=== PATIENT | male | born 1975 | race African-American/Black ===

== ENCOUNTER 2016-05-16 22:34 | Inpatient (IN) | payer OTHER ==
[~2016-05-16] VITALS: Ht 180.3 cm; Wt 88.5 kg
[~2016-05-16 22:34] MED LIST: ALBUTEROL SULF8.5 GM INH; ASPIRIN81 MG ORAL; ATIVAN0.5 MG ORAL; BUSPAR10 MG ORAL; COREG3.125 MG ORAL; COREG6.25 MG ORAL; FUROSEMIDE20 M1 ORAL; FUROSEMIDE40 MG ORAL; LISINOPRIL5 MG ORAL; NEURONTIN100 MG ORAL; NORCO 10-325 T1 EACH ORAL; NORCO 5-325 TA1 EACH ORAL
--- NOTE | 2016-05-16 23:06 | Emergency Room Report ---
History of Present Illness General Chief Complaint: Dizziness Source: Patient, Medical Record Present Illness HPI This is a 41-year-old male with a history of severe cardiomyopathy. He is noncompliant with his medication. He claimed that he lost his medication and has not been on them for about a week. Even when he had his medication he was taken on and off. He presents with chief complaint of being tired and syncope with exertion. Denies any nausea vomiting. Denies any chest pain. Does have some swelling in his lower extremity. No fever or chills. No diaphoresis. He does have short of breath with exertion. Allergies: Coded Allergies: No Known Allergies (Unverified , 03/27/16) Patient History Past Medical History: see triage record, old chart reviewed, CHF Past Surgical History: other Pertinent Family History: none Social History: Reports: drug use, smoking Immunizations: other Reviewed Nursing Documentation: PMH: Agreed, PSxH: Agreed Nursing Documentation-PMH Hx Cardiac Problems: Yes - CHF Hx Hypertension: Yes Hx COPD: Yes Hx Cancer: No Hx Gastrointestinal Problems: No Hx Neurological Problems: Yes Review of Systems Eye: Denies: blurred vision, eye pain ENT: Denies: ear pain, nose congestion, throat swelling Respiratory: Reports: shortness of breath, Denies: cough Cardiovascular: Denies: chest pain, palpitations Gastrointestinal: Denies: abdominal pain, diarrhea, nausea, vomiting Musculoskeletal: Denies: back pain, joint pain Skin: Denies: rash Neurological: Denies: headache, numbness Endocrine: Denies: increased thirst, increased urine Hematologic/Lymphatic: Denies: easy bruising All Other Systems: negative except mentioned in HPI Physical Exam Vital Signs Date Time Temp Pulse Resp B/P Pulse Ox O2 Delivery O2 Flow Rate FiO2 05/16/16 22:43 98.1 89 16 116/81 98 Room Air vitals normal Sp02 EP Interpretation: reviewed, normal General Appearance: well appearing, no apparent distress, alert Head: normocephalic, atraumatic Eyes: bilateral eye EOMI, bilateral eye PERRL ENT: hearing grossly normal, normal pharynx Neck: full range of motion, supple, no meningismus Respiratory: chest non-tender, lungs clear, normal breath sounds Cardiovascular #1: regular rate, rhythm, no murmur Gastrointestinal: normal bowel sounds, non tender, no mass, no organomegaly, no bruit, non-distended Musculoskeletal: back normal, gait/station normal, normal range of motion, swelling - 1+ edema Neurologic: alert, oriented x3 Psychiatric: mood/affect normal Skin: warm/dry Medical Decision Making Diagnostic Impression: Primary Impression: Cardiomyopathy Qualified Codes: I42.7 - Cardiomyopathy due to drug and external agent Additional Impressions: Acute exacerbation of CHF (congestive heart failure) Qualified Codes: I50.9 - Heart failure, unspecified Methamphetamine abuse Syncope and collapse ER Course Patient presents with syncope by history. Unwitnessed. Probably do to is severe cardiomyopathy. He is noncompliant with his medication. Also has history of drug abuse. He may need an AICD. May also be valve replacement. He is otherwise stable. Diuresing well after Lasix. We'll admit for further workup. Lab Results Impression labs showed elevated BNP EKG Diagnostic Results Rate: normal Rhythm: NSR ST Segments: no acute changes Rhythm Strip Diag. Results EP Interpretation: yes Rate: 80 Rhythm: NSR, no PVC's, no ectopy Chest X-Ray Diagnostic Results EP Interpretation: Yes Findings: no consolidation, no effusion, no pneumothorax, no acute cardiopulmonary disease, other - CM Number of Views: 1 Last Vital Signs Date Time Temp Pulse Resp B/P Pulse Ox O2 Delivery O2 Flow Rate FiO2 05/16/16 22:43 98.1 89 16 116/81 98 Room Air Status: improved Disposition: ADMITTED INPATIENT Condition: Serious JOHNATHAN VELAZQUEZ M.D. May 16, 2016 23:06
[2016-05-16 23:45] LABS: BASOPHILS % (AUTO) 1.6 % (0.0-2.0); EOSINOPHILS % (AUTO) 4.1 % (0.0-3.0); LYMPHOCYTES % (AUTO) 28.1 % (20.0-45.0); MEAN CORPUSCULAR HEMOGLOBIN 28.4 PG (27.0-31.0); MEAN CORPUSCULAR VOLUME 95 FL (80-99); MONOCYTES % (AUTO) 9.1 % (1.0-10.0); NEUTROPHILS % (AUTO) 57.1 % (45.0-75.0); PLATELET COUNT 208 K/UL (150-450); RED BLOOD COUNT 4.83 M/UL (4.70-6.10); RED CELL DISTRIBUTION WIDTH 13.1 % (11.6-14.8); WHITE BLOOD COUNT 6.8 K/UL (4.8-10.8)
[2016-05-16 23:49] VITALS: BP 117/80
[2016-05-17] VITALS (9 sets, daily range): BP systolic 109–131; BP diastolic 67–83
[2016-05-17 00:01] LABS: TROPONIN I < 0.30 ng/mL (<=0.30)
[2016-05-17 00:04] LABS: ALANINE AMINOTRANSFERASE 17 U/L (3-41); ALBUMIN/GLOBULIN RATIO 0.9 (1.0-2.7); ANION GAP 15 (5-15); ASPARTATE AMINO TRANSFERASE 20 U/L (5-40); CALCIUM 8.1 mg/dL (8.6-10.2); CARBON DIOXIDE 25 mEQ/L (20-30); CHLORIDE 98 mEQ/L (98-107); GLOMERULAR FILTRATION RATE > 60 mL/min (>60); HEMOLYSIS 14; POTASSIUM 3.8 mEQ/L (3.4-4.9); SODIUM 138 mEQ/L (135-145); TOTAL PROTEIN 6.1 g/dL (6.6-8.7)
[2016-05-17 00:15] LABS: CKMB 3.8 ng/mL (< 6.7)
[2016-05-17 00:21] LABS: APPEARANCE,URINE CLEAR; KETONES,URINE NEGATIVE (NEGATIVE); LEUKOCYTE ESTERASE ,URINE NEGATIVE (NEGATIVE); NITRITE,URINE NEGATIVE (NEGATIVE); PH,URINE 7 (4.5-8.0); PROTEIN,URINE NEGATIVE (NEGATIVE); UROBILINOGEN,URINE NORMAL MG/DL (0.0-1.0)
[2016-05-17] MEDS ORDERED: DuoNeb 0.5-3(2.5)mg/3ml neb HHN PRN (04:15)
[2016-05-17] MEDS ORDERED: Miralax 17gm pkt ORAL PRN (04:15)
[2016-05-17] MEDS: Heparin 5000 units/ml inj SUBQ SCH ×2 (09:00→21:00)
[2016-05-17] MEDS: BusPIRone 10mg Tab ORAL SCH ×3 (09:24→18:40)
[2016-05-17] MEDS: Lisinopril 2.5mg tab ORAL SCH ×2 (09:24→18:00)
[2016-05-17] MEDS: Albuterol 90mcg Inhaler 8gm INH SCH ×4 (10:01→22:15)
[2016-05-17 10:16] LABS: TROPONIN I < 0.30 ng/mL (<=0.30)
--- NOTE | 2016-05-17 11:02 | Cardiology Progress Note ---
Assessment/Plan Assessment/Plan syncope known cardiomyopathy limited exam and evaluation performed today rec orthostic vital watch on tele caue of cm may be volume or meds or vagal or arrhtymic was to see the psychiatric secretary asighned by her health plan but say has nto had a chance recommneded that he see the psychiatric secretary asigned for close fu chaes reexamine and reevlaute when pt allows when i return tomorrow Objective Last 24 Hour Vital Signs Date Time Temp Pulse Resp B/P Pulse Ox O2 Delivery O2 Flow Rate FiO2 05/17/16 10:20 97.0 05/17/16 10:02 97 16 Room Air 21 05/17/16 10:00 96 16 98 Room Air 21 05/17/16 09:24 120/77 05/17/16 09:23 89 120/77 05/17/16 08:00 94.6 89 18 120/77 98 89 05/17/16 07:43 84 05/17/16 04:01 88 05/17/16 04:00 97.0 72 18 131/83 100 Room Air 05/17/16 03:08 78 05/17/16 03:03 97.5 81 20 125/72 97 Room Air 05/17/16 02:30 98.4 85 16 116/76 99 Room Air 05/17/16 02:30 98.4 85 16 116/76 99 Room Air 05/17/16 01:30 98.4 88 14 118/78 100 Room Air 05/16/16 23:49 98.2 87 16 117/80 99 Room Air 05/16/16 22:43 98.1 89 16 116/81 98 Room Air Intake and Output 05/16/16 05/17/16 19:00 07:00 Intake Total 360 ml Output Total 3000 ml Balance -2640 ml Intake Oral 360 ml Output Urine Total 3000 ml # Voids 3 Laboratory Tests Test 05/16/16 23:30 05/17/16 09:10 White Blood Count 6.8 K/UL (4.8-10.8) Red Blood Count 4.83 M/UL (4.70-6.10) Hemoglobin 13.7 G/DL (14.2-18.0) L Hematocrit 45.7 % (42.0-52.0) Mean Corpuscular Volume 95 FL (80-99) Mean Corpuscular Hemoglobin 28.4 PG (27.0-31.0) Mean Corpuscular Hemoglobin Concent 30.0 G/DL (32.0-36.0) L Red Cell Distribution Width 13.1 % (11.6-14.8) Platelet Count 208 K/UL (150-450) Mean Platelet Volume 8.0 FL (6.5-10.1) Neutrophils (%) (Auto) 57.1 % (45.0-75.0) Lymphocytes (%) (Auto) 28.1 % (20.0-45.0) Monocytes (%) (Auto) 9.1 % (1.0-10.0) Eosinophils (%) (Auto) 4.1 % (0.0-3.0) H Basophils (%) (Auto) 1.6 % (0.0-2.0) Urine Color Pale yellow Urine Appearance Clear Urine pH 7 (4.5-8.0) Urine Specific [place] 1.010 (1.005-1.035) Urine Protein Negative (NEGATIVE) Urine Glucose (UA) Negative (NEGATIVE) Urine Ketones Negative (NEGATIVE) Urine Occult Blood Negative (NEGATIVE) Urine Nitrite Negative (NEGATIVE) Urine Bilirubin Negative (NEGATIVE) Urine Urobilinogen Normal MG/DL (0.0-1.0) Urine Leukocyte Esterase Negative (NEGATIVE) Sodium Level 138 mEQ/L (135-145) Potassium Level 3.8 mEQ/L (3.4-4.9) Chloride Level 98 mEQ/L (98-107) Carbon Dioxide Level 25 mEQ/L (20-30) Anion Gap 15 (5-15) Blood Urea Nitrogen 12 mg/dL (7-23) Creatinine 1.0 mg/dL (0.7-1.2) Estimat Glomerular Filtration Rate > 60 mL/min (>60) Glucose Level 136 mg/dL (74-106) H Calcium Level 8.1 mg/dL (8.6-10.2) L Total Bilirubin 0.5 mg/dL (0.0-1.2) Aspartate Amino Transf (AST/SGOT) 20 U/L (5-40) Alanine Aminotransferase (ALT/SGPT) 17 U/L (3-41) Alkaline Phosphatase 81 U/L (40-129) Total Creatine Kinase 246 U/L (38-174) H Creatine Kinase MB 3.8 ng/mL (< 6.7) Creatine Kinase MB Relative Index 1.5 Troponin I < 0.30 ng/mL (<=0.30) < 0.30 ng/mL (<=0.30) Pro-B-Type Natriuretic Peptide 2363 pg/mL (0-125) H Total Protein 6.1 g/dL (6.6-8.7) L Albumin 2.9 g/dL (3.5-5.2) L Globulin 3.2 g/dL Albumin/Globulin Ratio 0.9 (1.0-2.7) L Urine Opiates Screen Negative (NEGATIVE) Urine Barbiturates Screen Negative (NEGATIVE) Phencyclidine (PCP) Screen Negative (NEGATIVE) Urine Amphetamines Screen Positive (NEGATIVE) H Urine Benzodiazepines Screen Negative (NEGATIVE) Urine Cocaine Screen Negative (NEGATIVE) Urine Marijuana (THC) Screen Positive (NEGATIVE) REJI REIS May 17, 2016 11:02
--- NOTE | 2016-05-17 11:14 | Diagnostic Imaging Report ---
Indication: Dyspnea Comparison: 04/17/16 A single view chest radiograph was obtained. Findings: Heart is enlarged. Pulmonary vascularity is appropriate. The diaphragmatic contour is smooth and costophrenic angles are sharp. No pleural effusions are identified. The bones are unremarkable. Impression: No acute findings
--- NOTE | 2016-05-17 12:23 | History and Physical ---
History of Present Illness General Date patient seen: May 17, 2016 Reason for Hospitalization: Dizziness Present Illness HPI 41-year-old male with a history of severe cardiomyopathy, noncompliant with his medication. He presents with chief complaint of being tired and syncope with exertion. Denies any chest pain. Does have some swelling in his lower extremity. He does have short of breath with exertion. He is admitted to telemetry for further evaluation. Allergies: Coded Allergies: No Known Allergies (Unverified , 03/27/16) Medication History Scheduled Albuterol Sulfate* (Albuterol Sulfate Mdi*), 2 PUFF INH Q6H, (Reported) Aspirin* (Aspirin*), 81 MG ORAL DAILY, (Reported) Buspirone Hcl* (Buspar*), Unknown Dose ORAL THREE TIMES A DAY, (Reported) Buspirone Hcl* (Buspar*), 10 MG ORAL THREE TIMES A DAY Carvedilol (Coreg), Unknown Dose ORAL EVERY 12 HOURS, (Reported) Carvedilol (Coreg), 6.25 MG ORAL EVERY 12 HOURS, (Reported) Furosemide* (Lasix*), Unknown Dose ORAL DAILY, (Reported) Furosemide* (Lasix*), 40 MG ORAL TWICE A DAY, (Reported) Gabapentin* (Neurontin*), Unknown Dose ORAL THREE TIMES A DAY, (Reported) Gabapentin* (Neurontin*), 100 MG ORAL THREE TIMES A DAY, (Reported) Lisinopril (Lisinopril*), Unknown Dose ORAL DAILY, (Reported) Lisinopril (Lisinopril*), 10 MG ORAL BID, (Reported) Lorazepam* (Ativan*), Unknown Dose ORAL THREE TIMES A DAY, (Reported) Scheduled PRN Hydrocodone Bit/Acetaminophen 10-325* ([place] 10-325*), 1 TAB ORAL Q6H PRN Hydrocodone Bit/Acetaminophen 5-325* ([place] 5-325*), 1 TAB ORAL Q6H PRN for For Pain, (Reported) Patient History Healthcare decision maker Resuscitation status Full Code Advanced Directive on File No Past Medical/Surgical History Past Medical/Surgical History: (1) Homelessness (2) COPD (chronic obstructive pulmonary disease) (3) HTN (hypertension) (4) Severe systolic congestive heart failure (5) Methamphetamine abuse (6) Cardiomyopathy Review of Systems Constitutional: Reports: malaise, weakness Eye: Reports: no symptoms ENT: Reports: no symptoms Respiratory: Reports: shortness of breath Cardiovascular: Reports: no symptoms Gastrointestinal: Reports: no symptoms Genitourinary: Reports: no symptoms Skin: Reports: no symptoms Physical Exam General Appearance: WD/WN Lines, tubes and drains: peripheral, central line HEENT: normocephalic, atraumatic Neck: non-tender, normal alignment Respiratory/Chest: chest wall non-tender, lungs clear Cardiovascular/Chest: normal peripheral pulses, normal rate Abdomen: normal bowel sounds, non tender Genitourinary/Rectal: normal genital exam Skin Exam: normal pigmentation Last 24 Hour Vital Signs Date Time Temp Pulse Resp B/P Pulse Ox O2 Delivery O2 Flow Rate FiO2 05/17/16 10:20 97.0 05/17/16 10:02 97 16 Room Air 21 05/17/16 10:00 96 16 98 Room Air 21 05/17/16 09:24 120/77 05/17/16 09:23 89 120/77 05/17/16 08:00 94.6 89 18 120/77 98 89 05/17/16 07:43 84 05/17/16 04:01 88 05/17/16 04:00 97.0 72 18 131/83 100 Room Air 05/17/16 03:08 78 05/17/16 03:03 97.5 81 20 125/72 97 Room Air 05/17/16 02:30 98.4 85 16 116/76 99 Room Air 05/17/16 02:30 98.4 85 16 116/76 99 Room Air 05/17/16 01:30 98.4 88 14 118/78 100 Room Air 05/16/16 23:49 98.2 87 16 117/80 99 Room Air 05/16/16 22:43 98.1 89 16 116/81 98 Room Air Intake and Output 05/16/16 05/17/16 19:00 07:00 Intake Total 360 ml Output Total 3000 ml Balance -2640 ml Intake Oral 360 ml Output Urine Total 3000 ml # Voids 3 Laboratory Tests Test 05/16/16 23:30 05/17/16 09:10 White Blood Count 6.8 K/UL (4.8-10.8) Red Blood Count 4.83 M/UL (4.70-6.10) Hemoglobin 13.7 G/DL (14.2-18.0) L Hematocrit 45.7 % (42.0-52.0) Mean Corpuscular Volume 95 FL (80-99) Mean Corpuscular Hemoglobin 28.4 PG (27.0-31.0) Mean Corpuscular Hemoglobin Concent 30.0 G/DL (32.0-36.0) L Red Cell Distribution Width 13.1 % (11.6-14.8) Platelet Count 208 K/UL (150-450) Mean Platelet Volume 8.0 FL (6.5-10.1) Neutrophils (%) (Auto) 57.1 % (45.0-75.0) Lymphocytes (%) (Auto) 28.1 % (20.0-45.0) Monocytes (%) (Auto) 9.1 % (1.0-10.0) Eosinophils (%) (Auto) 4.1 % (0.0-3.0) H Basophils (%) (Auto) 1.6 % (0.0-2.0) Urine Color Pale yellow Urine Appearance Clear Urine pH 7 (4.5-8.0) Urine Specific [place] 1.010 (1.005-1.035) Urine Protein Negative (NEGATIVE) Urine Glucose (UA) Negative (NEGATIVE) Urine Ketones Negative (NEGATIVE) Urine Occult Blood Negative (NEGATIVE) Urine Nitrite Negative (NEGATIVE) Urine Bilirubin Negative (NEGATIVE) Urine Urobilinogen Normal MG/DL (0.0-1.0) Urine Leukocyte Esterase Negative (NEGATIVE) Sodium Level 138 mEQ/L (135-145) Potassium Level 3.8 mEQ/L (3.4-4.9) Chloride Level 98 mEQ/L (98-107) Carbon Dioxide Level 25 mEQ/L (20-30) Anion Gap 15 (5-15) Blood Urea Nitrogen 12 mg/dL (7-23) Creatinine 1.0 mg/dL (0.7-1.2) Estimat Glomerular Filtration Rate > 60 mL/min (>60) Glucose Level 136 mg/dL (74-106) H Calcium Level 8.1 mg/dL (8.6-10.2) L Total Bilirubin 0.5 mg/dL (0.0-1.2) Aspartate Amino Transf (AST/SGOT) 20 U/L (5-40) Alanine Aminotransferase (ALT/SGPT) 17 U/L (3-41) Alkaline Phosphatase 81 U/L (40-129) Total Creatine Kinase 246 U/L (38-174) H Creatine Kinase MB 3.8 ng/mL (< 6.7) Creatine Kinase MB Relative Index 1.5 Troponin I < 0.30 ng/mL (<=0.30) < 0.30 ng/mL (<=0.30) Pro-B-Type Natriuretic Peptide 2363 pg/mL (0-125) H Total Protein 6.1 g/dL (6.6-8.7) L Albumin 2.9 g/dL (3.5-5.2) L Globulin 3.2 g/dL Albumin/Globulin Ratio 0.9 (1.0-2.7) L Urine Opiates Screen Negative (NEGATIVE) Urine Barbiturates Screen Negative (NEGATIVE) Phencyclidine (PCP) Screen Negative (NEGATIVE) Urine Amphetamines Screen Positive (NEGATIVE) H Urine Benzodiazepines Screen Negative (NEGATIVE) Urine Cocaine Screen Negative (NEGATIVE) Urine Marijuana (THC) Screen Positive (NEGATIVE) H Height (Feet): 5 Height (Inches): 11.00 Weight (Pounds): 192 Medications Current Medications Medications (Trade) Dose Ordered Sig/Prosper Route PRN Reason Start Time Stop Time Status Last Admin Dose Admin Acetaminophen (Tylenol) 650 mg Q4H PRN ORAL Fever 05/17/16 04:15 06/16/16 04:14 Acetaminophen/ Hydrocodone Bitart ([place] 10/325) 1 ea Q6H PRN ORAL pain 05/17/16 04:15 05/24/16 04:14 Albuterol Sulfate (Proventil MDI) 2 puff Q6H INH 05/17/16 04:15 06/16/16 04:14 05/17/16 10:03 Albuterol/ Ipratropium (DuoNeb 0.5-3(2.5)mg/3ml) 3 ml EVERY 4 HOURS PRN HHN Shortness of Breath 05/17/16 04:15 05/22/16 04:14 Buspirone HCl (Buspar) 10 mg THREE TIMES A DAY ORAL 05/17/16 09:00 06/16/16 08:59 05/17/16 09:24 Carvedilol (Coreg) 3.25 mg EVERY 12 HOURS ORAL 05/17/16 09:00 06/16/16 08:59 05/17/16 09:23 Dextrose (Dextrose 50%) STAT PRN IV Hypoglycemia 05/17/16 04:15 06/16/16 04:14 Furosemide (Lasix) 40 mg EVERY 8 HOURS IV 05/17/16 06:00 06/16/16 05:59 05/17/16 05:51 Gabapentin (Neurontin) 100 mg THREE TIMES A DAY ORAL 05/17/16 09:00 06/16/16 08:59 05/17/16 09:21 Heparin Sodium (Porcine) (Heparin 5000 units/ml) 5,000 units EVERY 12 HOURS SUBQ 05/17/16 09:00 06/16/16 08:59 Lisinopril (Zestril) 10 mg BID ORAL 05/17/16 09:00 06/16/16 08:59 05/17/16 09:24 Ondansetron HCl (Zofran) 4 mg Q6H PRN IVP Nausea & Vomiting 05/17/16 04:15 06/16/16 04:14 Polyethylene Glycol (Miralax) 17 gm DAILYPRN PRN ORAL Constipation 05/17/16 04:15 06/16/16 04:14 Temazepam (Restoril) 15 mg HSPRN PRN ORAL Insomnia 05/17/16 04:15 05/24/16 04:14 Assessment/Plan Problem List: (1) Acute exacerbation of CHF (congestive heart failure) ICD Codes: I50.9 - Heart failure, unspecified SNOMED: 24569127 Qualifiers: Qualified Codes: I50.9 - Heart failure, unspecified (2) Severe systolic congestive heart failure ICD Codes: I50.20 - Unspecified systolic (congestive) heart failure SNOMED: 39243010, [id number] (3) COPD (chronic obstructive pulmonary disease) ICD Codes: J44.9 - Chronic obstructive pulmonary disease, unspecified SNOMED: 12710210 (4) Methamphetamine abuse ICD Codes: F15.10 - Other stimulant abuse, uncomplicated SNOMED: 978599865 (5) Homelessness ICD Codes: Z59.0 - Homelessness SNOMED: [id number] Assessment/Plan telemetry cardiac evaluation titrate cardiac meds RONY LIGHT May 17, 2016 12:23
[2016-05-17] MEDS: Norco 10mg/325mg tab ORAL PRN (16:55)
--- NOTE | 2016-05-17 19:47 | Consultation ---
DATE OF CONSULTATION: 05/17/2016 CARDIOLOGY CONSULTATION CONSULTING PHYSICIAN: Aidan Noguera M.D. REFERRING PHYSICIAN: Meagan Henson M.D. REASON FOR REFERRAL: Syncope. HISTORY OF PRESENT ILLNESS: This is a 41-year-old gentleman whom I have seen before for cardiomyopathy. The patient is admitted because of syncope to discuss these as his mind is foggy right now that he is unable to talk at this time. He did provide some information. Apparently, he was singing in the parade when he passed out, but he does not provide any more information than that. It does appear that the patient does wake up at night because of shortness of breath. He is homeless, but he does not sleep on the street, he says. He does not have luxurious pillows to sleep and so I am not sure how many pillows he actually uses. He does have shortness of breath at times. He does get dizzy or lightheaded when he sits up often. I was not really able to elicit more information from him because he indicated that he is groggy, that he has already told me that he is groggy, that he is unable to provide information at this time. PAST MEDICAL HISTORY: From his last hospitalization is systolic heart failure, cardiomyopathy, COPD, hypertension, and apparently he has a history of smoking and a history of cocaine abuse, but reportedly in remission according to the records. ALLERGIES: He is not allergic to any medications. SOCIAL HISTORY: He smokes. Again, homeless, but not lives on the street. He has a prior history of cocaine abuse. REVIEW OF SYSTEMS: Unable to obtain. PHYSICAL EXAMINATION: GENERAL: Very limited. The patient was not able to sit up all the way. VITAL SIGNS: His blood pressure is 120/77 with a heart rate of 89 to 97, and oxygen saturation on room air is 98%. LUNGS: The upper lung webster appear to be clear. CARDIAC: Regular rate and rhythm to the extent the patient allowed examination. EXTREMITIES: The patient refused examination of the lower extremities, referred me to the vascular soil conservation technician to check with before examining his legs, so this is a limited examination. LABORATORY AND DIAGNOSTIC DATA: The patient's EKG shows normal sinus rhythm, some voltage criteria for left ventricular hypertrophy. There is some T-wave inversions in lead aVL and V6. Unfortunately, I am unable to bill the old images to compare with. White count is 6.8 with hemoglobin 13.7 and platelet count of 208,000. Sodium is 138, potassium 3.8, chloride 98, bicarbonate 25, BUN 12, creatinine is 1.0, and a glucose of 136. Calcium is 8.1. Liver function tests are normal. Total CK of 246. Troponins are negative and his pro-BNP is 2300. His albumin is 2.9. His triglycerides . ASSESSMENT AND PLAN: 1. Syncope. 2. History of known cardiomyopathy. Aidan Noguera M.D. DR: ALEJO JOB#: [id number] CC:
[2016-05-18] VITALS (7 sets, daily range): BP systolic 107–122; BP diastolic 62–80
[2016-05-18] MEDS: Norco 10mg/325mg tab ORAL PRN ×3 (00:14→13:58)
[2016-05-18] MEDS: Albuterol 90mcg Inhaler 8gm INH SCH ×4 (01:00→19:00)
[2016-05-18 08:25] LABS: BASOPHILS % (AUTO) 1.7 % (0.0-2.0); EOSINOPHILS % (AUTO) 3.5 % (0.0-3.0); LYMPHOCYTES % (AUTO) 25.6 % (20.0-45.0); MEAN CORPUSCULAR HEMOGLOBIN 28.4 PG (27.0-31.0); MEAN CORPUSCULAR HGB CONC 30.8 G/DL (32.0-36.0); MEAN CORPUSCULAR VOLUME 92 FL (80-99); MEAN PLATELET VOLUME 9.1 FL (6.5-10.1); MONOCYTES % (AUTO) 10.7 % (1.0-10.0); NEUTROPHILS % (AUTO) 58.5 % (45.0-75.0); PLATELET COUNT 257 K/UL (150-450); RED CELL DISTRIBUTION WIDTH 12.8 % (11.6-14.8); WHITE BLOOD COUNT 6.2 K/UL (4.8-10.8)
[2016-05-18 08:35] LABS: TROPONIN I < 0.30 ng/mL (<=0.30)
[2016-05-18] MEDS: Heparin 5000 units/ml inj SUBQ SCH ×2 (09:00→21:05)
[2016-05-18 09:07] LABS: ANION GAP 16 (5-15); CALCIUM 8.9 mg/dL (8.6-10.2); CARBON DIOXIDE 27 mEQ/L (20-30); CHLORIDE 94 mEQ/L (98-107); CREATININE 1.1 mg/dL (0.7-1.2); GLOMERULAR FILTRATION RATE > 60 mL/min (>60); HEMOLYSIS 11; PHOSPHORUS 3.4 mg/dL (2.5-4.8); SODIUM 137 mEQ/L (135-145)
[2016-05-18] MEDS: Lisinopril 2.5mg tab ORAL SCH ×2 (10:05→18:00)
[2016-05-18] MEDS: BusPIRone 10mg Tab ORAL SCH ×3 (10:05→18:25)
--- NOTE | 2016-05-18 12:14 | Diagnostic Imaging Report ---
Indication: Dyspnea Comparison: 05/16/16 A single view chest radiograph was obtained. Findings: Cardiomegaly is present. Pulmonary vascularity is appropriate. The diaphragmatic contour is smooth and costophrenic angles are sharp. No pleural effusions are identified. The bones are unremarkable. Impression: No acute findings
--- NOTE | 2016-05-18 15:11 | Pulmonology Progress Note ---
Assessment/Plan Problems: (1) Acute exacerbation of CHF (congestive heart failure) (2) Severe systolic congestive heart failure (3) COPD (chronic obstructive pulmonary disease) (4) Methamphetamine abuse (5) Homelessness Assessment/Plan improving no SOB No hypotensive episodes pt refusing to go until he is "better" case management try tor transfer the pt to [facility] Subjective ROS Limited/Unobtainable: No Constitutional: Reports: no symptoms HEENT: Repors: no symptoms Respiratory: Reports: no symptoms Allergies: Coded Allergies: No Known Allergies (Unverified , 03/27/16) Objective Last 24 Hour Vital Signs Date Time Temp Pulse Resp B/P Pulse Ox O2 Delivery O2 Flow Rate FiO2 05/18/16 14:24 96.5 05/18/16 14:24 96.5 05/18/16 11:59 77 05/18/16 11:45 90 05/18/16 11:40 77 05/18/16 11:35 71 05/18/16 11:29 96.5 74 20 114/70 99 Room Air 05/18/16 10:06 77 114/70 05/18/16 10:05 114/70 05/18/16 10:03 77 114/70 05/18/16 08:10 69 05/18/16 08:02 97.1 89 20 107/80 98 Room Air 05/18/16 07:42 Room Air 05/18/16 07:42 Room Air 05/18/16 04:30 98.0 76 20 122/79 100 Room Air 05/18/16 04:08 86 05/18/16 01:27 Room Air 21 05/18/16 01:27 Room Air 21 05/18/16 00:45 96.0 85 20 111/69 98 Room Air 90 05/17/16 23:42 68 05/17/16 22:16 82 109/67 05/17/16 20:00 81 05/17/16 19:30 Room Air 21 05/17/16 19:30 Room Air 21 05/17/16 18:00 109/67 05/17/16 16:00 77 05/17/16 16:00 97.4 82 20 109/67 98 Room Air Intake and Output 05/17/16 05/18/16 19:00 07:00 Intake Total 980 ml Output Total 5600 ml 2400 ml Balance -4620 ml -2400 ml Intake Oral 980 ml Output Urine Total 5600 ml 2400 ml # Voids 6 3 # Bowel Movements 1 General Appearance: WD/WN HEENT: atraumatic Respiratory/Chest: chest wall non-tender, lungs clear, chest wall tender Cardiovascular: normal rate Abdomen: normal bowel sounds, soft, non tender Genitourinary: normal external genitalia Skin: no rash Laboratory Tests 05/18/16 08:00: White Blood Count 6.2, Red Blood Count 5.80, Hemoglobin 16.5, Hematocrit 53.5H, Mean Corpuscular Volume 92, Mean Corpuscular Hemoglobin 28.4, Mean Corpuscular Hemoglobin Concent 30.8L, Red Cell Distribution Width 12.8, Platelet Count 257, Mean Platelet Volume 9.1, Neutrophils (%) (Auto) 58.5, Lymphocytes (%) (Auto) 25.6, Monocytes (%) (Auto) 10.7H, Eosinophils (%) (Auto) 3.5H, Basophils (%) ( Auto) 1.7, Sodium Level 137, Potassium Level 4.0, Chloride Level 94L, Carbon Dioxide Level 27, Anion Gap 16H, Blood Urea Nitrogen 20, Creatinine 1.1, Estimat Glomerular Filtration Rate > 60, Glucose Level 145H, Calcium Level 8.9, Phosphorus Level 3.4, Troponin I < 0.30, Albumin 3.4L Current Medications Medications (Trade) Dose Ordered Sig/Prosper Route PRN Reason Start Time Stop Time Status Last Admin Dose Admin Acetaminophen (Tylenol) 650 mg Q4H PRN ORAL Fever 05/17/16 04:15 06/16/16 04:14 Acetaminophen/ Hydrocodone Bitart ([place] 10/325) 1 ea Q6H PRN ORAL pain 05/17/16 04:15 05/24/16 04:14 05/18/16 13:58 Albuterol Sulfate (Proventil MDI) 2 puff Q6H INH 05/18/16 01:00 06/17/16 00:59 Albuterol/ Ipratropium (DuoNeb 0.5-3(2.5)mg/3ml) 3 ml EVERY 4 HOURS PRN HHN Shortness of Breath 05/17/16 04:15 05/22/16 04:14 Buspirone HCl (Buspar) 10 mg THREE TIMES A DAY ORAL 05/17/16 09:00 06/16/16 08:59 05/18/16 13:24 Carvedilol (Coreg) 3.25 mg EVERY 12 HOURS ORAL 05/17/16 09:00 06/16/16 08:59 05/18/16 10:06 Dextrose (Dextrose 50%) STAT PRN IV Hypoglycemia 05/17/16 04:15 06/16/16 04:14 Furosemide (Lasix) 40 mg EVERY 8 HOURS IV 05/17/16 06:00 06/16/16 05:59 05/18/16 13:26 Gabapentin (Neurontin) 100 mg THREE TIMES A DAY ORAL 05/17/16 09:00 06/16/16 08:59 05/18/16 13:25 Heparin Sodium (Porcine) (Heparin 5000 units/ml) 5,000 units EVERY 12 HOURS SUBQ 05/17/16 09:00 06/16/16 08:59 Lisinopril (Zestril) 10 mg BID ORAL 05/17/16 09:00 06/16/16 08:59 05/18/16 10:05 Ondansetron HCl (Zofran) 4 mg Q6H PRN IVP Nausea & Vomiting 05/17/16 04:15 06/16/16 04:14 Polyethylene Glycol (Miralax) 17 gm DAILYPRN PRN ORAL Constipation 05/17/16 04:15 06/16/16 04:14 Temazepam (Restoril) 15 mg HSPRN PRN ORAL Insomnia 05/17/16 04:15 05/24/16 04:14 RONY LIGHT May 18, 2016 15:11
[2016-05-18] MEDS: LORazepam 1mg tab ORAL PRN (19:49)
[2016-05-19] VITALS (7 sets, daily range): BP systolic 92–128; BP diastolic 55–74
[2016-05-19] MEDS: Albuterol 90mcg Inhaler 8gm INH SCH ×4 (01:00→18:45)
[2016-05-19] MEDS: Norco 10mg/325mg tab ORAL PRN ×3 (03:26→18:40)
[2016-05-19 07:52] LABS: TROPONIN I < 0.30 ng/mL (<=0.30)
[2016-05-19] MEDS: LORazepam 1mg tab ORAL PRN (08:26)
[2016-05-19] MEDS: BusPIRone 10mg Tab ORAL SCH ×4 (08:27→20:45)
[2016-05-19] MEDS: Heparin 5000 units/ml inj SUBQ SCH ×3 (08:29→22:06)
[2016-05-19] MEDS: Lisinopril 2.5mg tab ORAL SCH ×2 (08:48→18:41)
--- NOTE | 2016-05-19 17:04 | Pulmonology Progress Note ---
Assessment/Plan Problems: (1) Acute exacerbation of CHF (congestive heart failure) (2) Severe systolic congestive heart failure (3) COPD (chronic obstructive pulmonary disease) (4) Methamphetamine abuse (5) Homelessness Assessment/Plan improving no SOB No hypotensive episodes pt refusing to go until he is "better" awaiting for transfer to higher level of care case management try tor transfer the pt to [facility] Subjective ROS Limited/Unobtainable: No Constitutional: Reports: no symptoms HEENT: Repors: no symptoms Allergies: Coded Allergies: No Known Allergies (Unverified , 03/27/16) Objective Last 24 Hour Vital Signs Date Time Temp Pulse Resp B/P Pulse Ox O2 Delivery O2 Flow Rate FiO2 05/19/16 16:08 97.3 74 18 110/63 96 Room Air 05/19/16 14:08 97.2 05/19/16 14:08 97.2 05/19/16 13:20 Room Air 05/19/16 12:00 97.2 75 18 116/64 95 Room Air 05/19/16 08:48 128/67 05/19/16 08:38 87 128/67 05/19/16 08:07 78 16 96 Room Air 21 05/19/16 08:00 97.3 83 20 128/74 95 Room Air 05/19/16 07:57 77 16 96 Room Air 21 05/19/16 06:19 78 85 50 05/19/16 04:00 97.2 78 21 104/60 95 Room Air 05/19/16 01:19 Room Air 05/19/16 01:05 Room Air 05/19/16 00:19 97.7 78 20 115/62 97 Room Air 05/18/16 21:04 85 112/65 05/18/16 20:41 85 92 05/18/16 20:40 97.2 85 20 112/65 Room Air 05/18/16 19:29 73 16 97 Room Air 21 05/18/16 19:29 75 16 97 Room Air 21 Intake and Output 05/18/16 05/19/16 19:00 07:00 Intake Total 710 ml 480 ml Output Total 2000 ml Balance -1290 ml 480 ml Intake Oral 710 ml 480 ml Output Urine Total 2000 ml # Voids 1 General Appearance: WD/WN HEENT: normocephalic Respiratory/Chest: chest wall non-tender, lungs clear Cardiovascular: normal peripheral pulses Abdomen: normal bowel sounds Extremities: no cyanosis, no clubbing Laboratory Tests 05/19/16 06:35: Troponin I < 0.30 Current Medications Medications (Trade) Dose Ordered Sig/Prosper Route PRN Reason Start Time Stop Time Status Last Admin Dose Admin Acetaminophen (Tylenol) 650 mg Q4H PRN ORAL Fever 05/17/16 04:15 06/16/16 04:14 Acetaminophen/ Hydrocodone Bitart ([place] 10/325) 1 ea Q6H PRN ORAL pain 05/17/16 04:15 05/24/16 04:14 05/19/16 12:24 Albuterol Sulfate (Proventil MDI) 2 puff Q6H INH 05/18/16 01:00 06/17/16 00:59 05/19/16 07:57 Albuterol/ Ipratropium (DuoNeb 0.5-3(2.5)mg/3ml) 3 ml EVERY 4 HOURS PRN HHN Shortness of Breath 05/17/16 04:15 05/22/16 04:14 Buspirone HCl (Buspar) 10 mg THREE TIMES A DAY ORAL 05/17/16 09:00 06/16/16 08:59 05/19/16 12:26 Carvedilol (Coreg) 3.25 mg EVERY 12 HOURS ORAL 05/17/16 09:00 06/16/16 08:59 05/19/16 08:38 Dextrose (Dextrose 50%) STAT PRN IV Hypoglycemia 05/17/16 04:15 06/16/16 04:14 Furosemide (Lasix) 40 mg EVERY 8 HOURS IV 05/17/16 06:00 06/16/16 05:59 05/19/16 14:35 Gabapentin (Neurontin) 100 mg THREE TIMES A DAY ORAL 05/17/16 09:00 06/16/16 08:59 05/19/16 12:25 Heparin Sodium (Porcine) (Heparin 5000 units/ml) 5,000 units EVERY 12 HOURS SUBQ 05/17/16 09:00 06/16/16 08:59 05/18/16 21:05 Lisinopril (Zestril) 10 mg BID ORAL 05/17/16 09:00 06/16/16 08:59 05/18/16 10:05 Lorazepam (Ativan) 1 mg Q4H PRN ORAL For Anxiety 05/18/16 19:30 05/25/16 19:29 05/19/16 08:26 Ondansetron HCl (Zofran) 4 mg Q6H PRN IVP Nausea & Vomiting 05/17/16 04:15 06/16/16 04:14 Polyethylene Glycol (Miralax) 17 gm DAILYPRN PRN ORAL Constipation 05/17/16 04:15 06/16/16 04:14 05/19/16 08:39 Temazepam (Restoril) 15 mg HSPRN PRN ORAL Insomnia 05/17/16 04:15 05/24/16 04:14 RONY LIGHT May 19, 2016 17:04
[2016-05-19] MEDS ORDERED: Miralax 17gm pkt ORAL PRN (20:00)
[2016-05-19] MEDS: Lisinopril 10mg tab ORAL SCH (20:46)
[2016-05-19] MEDS ORDERED: DuoNeb 0.5-3(2.5)mg/3ml neb HHN PRN (21:00)
[2016-05-20] MEDS: Norco 10mg/325mg tab ORAL PRN ×3 (00:48→18:12)
[2016-05-20] MEDS: Albuterol 90mcg Inhaler 8gm INH SCH ×4 (01:00→19:00)
[2016-05-20 03:51] VITALS: BP 95/63
[2016-05-20] MEDS: BusPIRone 10mg Tab ORAL SCH ×4 (06:19→18:11)
--- NOTE | 2016-05-20 07:18 | Pulmonology Progress Note ---
Assessment/Plan Assessment/Plan ASSESSMENT syncope ( with exertion, not witnessed) systolic CHF severe cardiomyopathy Non compliance with medications severe pulmonary HTN moderate TR severe MR COPD Hx of HTN amphetamine abuse Homeless [facility] [place] floor , off tele ECG with NSR , TWI in leads aVL and V6 and evidence of LVH - per cardio cardio follows troponin x 4 negative, ruled out for acute [place] syncope ( if real) could be 2 to drug abuse vs dehydration vs vasovagal vs arrhythmia no orthostatic changes no evidence of arrhythmia medical management of CHF with low dose of BB, diuretic and ELDON, last ECHO in 2015 with EF 10-15 %, RVSP of 58 c/w severe pulmonary HTN, severe MR and moderate TR BP remains stable O2, HHN prn CXR negative on RA sat stable, no respiratory complaints no evidence of COPD exacerbation, no evidence of seizure activity Venous Duplex BLE negative DVT prophylaxis patient declined to leave until feels better CM to arrange transfer to [facility] queen's counsel on abstinence from street drugs queen's counsel on compliance with medication regimen case discussed and evaluated by supervising physician Subjective Allergies: Coded Allergies: No Known Allergies (Unverified , 03/27/16) Subjective reports not feeling well , c/o back pain, [place] not helping denies chest pain, SOB, but stated had it intermittently at night on RA, no signs of respiratory distress BP stable Objective Last 24 Hour Vital Signs Date Time Temp Pulse Resp B/P Pulse Ox O2 Delivery O2 Flow Rate FiO2 05/20/16 03:51 97.7 70 18 95/63 97 Room Air 05/20/16 00:54 Room Air 05/20/16 00:54 Room Air 05/19/16 23:51 97.7 89 20 104/64 97 Room Air 05/19/16 22:06 77 92/55 05/19/16 20:15 97.0 77 18 92/55 97 Room Air 05/19/16 20:15 77 05/19/16 18:46 Room Air 05/19/16 18:45 Room Air 05/19/16 18:41 110/63 05/19/16 16:08 97.3 74 18 110/63 96 Room Air 05/19/16 14:08 97.2 05/19/16 14:08 97.2 05/19/16 13:20 Room Air 05/19/16 12:00 97.2 75 18 116/64 95 Room Air 05/19/16 08:48 128/67 05/19/16 08:38 87 128/67 05/19/16 08:07 78 16 96 Room Air 21 05/19/16 08:00 97.3 83 20 128/74 95 Room Air 05/19/16 07:57 77 16 96 Room Air 21 Intake and Output 05/19/16 05/20/16 19:00 07:00 Intake Total 1480 ml Output Total 800 ml Balance 680 ml Intake Oral 1480 ml Output Urine Total 800 ml # Voids 6 General Appearance: no acute distress HEENT: normocephalic, atraumatic, anicteric, mucous membranes moist Respiratory/Chest: lungs clear - with moderate air entry , no respiratory distress, no accessory muscle use Cardiovascular: normal rate, regular rhythm, no JVD Abdomen: normal bowel sounds, soft, non tender, non distended Genitourinary: normal external genitalia Extremities: no edema, pedal pulses normal Neurologic/Psychiatric: no motor/sensory deficits, alert, oriented x 3, responsive, normal mood/affect Musculoskeletal: normal muscle bulk Current Medications Medications (Trade) Dose Ordered Sig/Prosper Route PRN Reason Start Time Stop Time Status Last Admin Dose Admin Acetaminophen (Tylenol) 650 mg Q4H PRN ORAL Fever 05/19/16 20:15 06/18/16 20:14 Acetaminophen/ Hydrocodone Bitart ([place] 10/325) 1 ea Q6H PRN ORAL For Pain 05/19/16 20:00 05/26/16 19:59 05/20/16 06:48 Albuterol Sulfate (Proventil MDI) 2 puff Q6H INH 05/20/16 01:00 06/19/16 00:59 Albuterol/ Ipratropium (DuoNeb 0.5-3(2.5)mg/3ml) 3 ml Q4H PRN HHN Shortness of Breath 05/19/16 21:00 05/24/16 20:59 Buspirone HCl (Buspar) 10 mg THREE TIMES A DAY ORAL 05/19/16 21:00 06/18/16 20:59 Carvedilol (Coreg) 3.25 mg EVERY 12 HOURS ORAL 05/19/16 21:00 06/18/16 20:59 Dextrose (Dextrose 50%) STAT PRN IV Hypoglycemia 05/19/16 20:00 06/18/16 19:59 Furosemide (Lasix) 40 mg EVERY 8 HOURS IV 05/19/16 22:00 06/18/16 21:59 Gabapentin (Neurontin) 100 mg THREE TIMES A DAY ORAL 05/19/16 21:00 06/18/16 20:59 Heparin Sodium (Porcine) (Heparin 5000 units/ml) 5,000 units EVERY 12 HOURS SUBQ 05/19/16 21:00 06/18/16 20:59 Lisinopril (Zestril) 10 mg BID ORAL 05/19/16 21:00 06/18/16 20:59 Lorazepam (Ativan) 1 mg Q4H PRN ORAL For Anxiety 05/19/16 19:30 05/26/16 19:29 Ondansetron HCl (Zofran) 4 mg Q6H PRN IVP Nausea & Vomiting 05/19/16 20:00 06/18/16 19:59 Polyethylene Glycol (Miralax) 17 gm DAILYPRN PRN ORAL Constipation 05/19/16 20:00 06/18/16 19:59 Temazepam (Restoril) 15 mg HSPRN PRN ORAL Insomnia 05/19/16 21:00 05/26/16 20:59 Asif EscobarRenetta mejia NP May 20, 2016 07:18
[2016-05-20 08:00] VITALS: BP 113/57
[2016-05-20] MEDS: Lisinopril 10mg tab ORAL SCH ×2 (08:28→18:12)
[2016-05-20] MEDS: LORazepam 1mg tab ORAL PRN (08:29)
[2016-05-20] MEDS: Heparin 5000 units/ml inj SUBQ SCH ×2 (08:33→21:00)
[2016-05-20 12:00] VITALS: BP 110/62
[2016-05-20 18:00] VITALS: BP 112/58
[2016-05-20 20:00] VITALS: BP 112/58
[2016-05-21] VITALS: BP 102/59
[2016-05-21] MEDS: Albuterol 90mcg Inhaler 8gm INH SCH ×4 (01:00→19:00)
[2016-05-21 04:00] VITALS: BP 110/61
[2016-05-21] MEDS: Heparin 5000 units/ml inj SUBQ SCH ×2 (09:00→21:00)
[2016-05-21] MEDS: BusPIRone 10mg Tab ORAL SCH ×3 (09:00→19:39)
[2016-05-21] MEDS: LORazepam 1mg tab ORAL PRN ×2 (09:23→14:27)
[2016-05-21] MEDS: Norco 10mg/325mg tab ORAL PRN ×3 (09:25→21:38)
[2016-05-21] MEDS: Lisinopril 10mg tab ORAL SCH ×2 (09:26→19:39)
[2016-05-21 12:04] VITALS: BP 99/57
--- NOTE | 2016-05-21 14:22 | Pulmonology Progress Note ---
Assessment/Plan Assessment/Plan ASSESSMENT syncope ( with exertion, not witnessed) systolic CHF severe cardiomyopathy Non compliance with medications severe pulmonary HTN moderate TR severe MR COPD Hx of HTN amphetamine abuse Homeless [facility] [place] floor , off tele ECG with NSR , TWI in leads aVL and V6 and evidence of LVH - per cardio cardio follows troponin x 4 negative, ruled out for acute [place] syncope ( if real) could be 2 to drug abuse vs dehydration vs vasovagal vs arrhythmia no orthostatic changes no evidence of arrhythmia medical management of CHF with low dose of BB, diuretic and ELDON, last ECHO in 2015 with EF 10-15 %, RVSP of 58 c/w severe pulmonary HTN, severe MR and moderate TR BP lower today, reports dizziness bolus NS 250 cc no orthostatic changes O2, HHN prn CXR negative on RA sat stable, no respiratory complaints no evidence of COPD exacerbation, no evidence of seizure activity Venous Duplex BLE negative DVT prophylaxis patient declined to leave until feels better CM to arrange transfer to [facility] director of counseling on abstinence from street drugs director of counseling on compliance with medication regimen case discussed and evaluated by supervising physician Subjective Allergies: Coded Allergies: No Known Allergies (Unverified , 03/27/16) Subjective reports not feeling well , dizziness no orthostatic VS BP on a low site denies chest pain, SOB, but stated had it intermittently at night on RA, no signs of respiratory distress Objective Last 24 Hour Vital Signs Date Time Temp Pulse Resp B/P Pulse Ox O2 Delivery O2 Flow Rate FiO2 05/21/16 12:06 75 84 72 05/21/16 12:04 97.3 75 15 99/57 98 Room Air 05/21/16 10:24 96.8 05/21/16 10:24 96.8 05/21/16 09:26 114/62 05/21/16 09:24 83 114/62 05/21/16 09:00 83 98 88 05/21/16 04:00 96.8 77 18 110/61 97 Room Air 05/21/16 01:24 Room Air 05/21/16 01:23 Room Air 05/21/16 00:00 97.9 74 18 102/59 98 Room Air 05/20/16 21:17 71 110/62 05/20/16 20:00 97.5 74 18 112/58 97 Room Air 05/20/16 19:24 Room Air 05/20/16 19:24 Room Air 05/20/16 18:12 110/62 05/20/16 18:00 97.5 74 18 112/58 97 Room Air 05/20/16 18:00 104 100 94 Intake and Output 05/20/16 05/21/16 19:00 07:00 Intake Total 680 ml 500 ml Output Total 1600 ml 2050 ml Balance -920 ml -1550 ml Intake Oral 680 ml 500 ml Output Urine Total 1600 ml 2050 ml # Voids 5 2 Objective General Appearance: no acute distress HEENT: normocephalic, atraumatic, anicteric, mucous membranes moist Respiratory/Chest: lungs clear with moderate air entry , no respiratory distress, no accessory muscle use Cardiovascular: normal rate, regular rhythm, no JVD Abdomen: normal bowel sounds, soft, non tender, non distended Genitourinary: normal external genitalia Extremities: no edema, pedal pulses normal Neurologic/Psychiatric: no motor/sensory deficits, alert, oriented x 3, responsive, normal mood/affect Musculoskeletal: normal muscle bulk Current Medications Medications (Trade) Dose Ordered Sig/Prosper Route PRN Reason Start Time Stop Time Status Last Admin Dose Admin Acetaminophen (Tylenol) 650 mg Q4H PRN ORAL Fever 05/19/16 20:15 06/18/16 20:14 Acetaminophen/ Hydrocodone Bitart ([place] 10/325) 1 ea Q6H PRN ORAL For Pain 05/19/16 20:00 05/26/16 19:59 05/21/16 09:25 Albuterol Sulfate (Proventil MDI) 2 puff Q6H INH 05/20/16 01:00 06/19/16 00:59 Albuterol/ Ipratropium (DuoNeb 0.5-3(2.5)mg/3ml) 3 ml Q4H PRN HHN Shortness of Breath 05/19/16 21:00 05/24/16 20:59 Buspirone HCl (Buspar) 10 mg THREE TIMES A DAY ORAL 05/19/16 21:00 06/18/16 20:59 05/20/16 18:11 Carvedilol (Coreg) 3.25 mg EVERY 12 HOURS ORAL 05/19/16 21:00 06/18/16 20:59 05/21/16 09:24 Dextrose (Dextrose 50%) STAT PRN IV Hypoglycemia 05/19/16 20:00 06/18/16 19:59 Furosemide (Lasix) 40 mg EVERY 8 HOURS IV 05/19/16 22:00 06/18/16 21:59 05/21/16 05:51 Gabapentin (Neurontin) 100 mg THREE TIMES A DAY ORAL 05/19/16 21:00 06/18/16 20:59 05/21/16 09:25 Heparin Sodium (Porcine) (Heparin 5000 units/ml) 5,000 units EVERY 12 HOURS SUBQ 05/19/16 21:00 06/18/16 20:59 Lisinopril (Zestril) 10 mg BID ORAL 05/19/16 21:00 06/18/16 20:59 05/21/16 09:26 Lorazepam (Ativan) 1 mg Q4H PRN ORAL For Anxiety 05/19/16 19:30 05/26/16 19:29 05/21/16 09:23 Ondansetron HCl (Zofran) 4 mg Q6H PRN IVP Nausea & Vomiting 05/19/16 20:00 06/18/16 19:59 05/20/16 18:12 Polyethylene Glycol (Miralax) 17 gm DAILYPRN PRN ORAL Constipation 05/19/16 20:00 06/18/16 19:59 Temazepam (Restoril) 15 mg HSPRN PRN ORAL Insomnia 05/19/16 21:00 05/26/16 20:59 [facility]Renetta NP May 21, 2016 14:22
[2016-05-21] MEDS ORDERED: NS 275 ML ONE (14:30)
[2016-05-21 16:13] VITALS: BP 102/60
--- NOTE | 2016-05-21 17:10 | Diagnostic Imaging Report ---
APPROVED REPORT CPT Code: 19660 Present Symptoms Lower Extremity Pain: BILATERAL: Imaging reveals a patent deep venous system bilaterally. There is no evidence of thrombus within the femoral, popliteal or tibial segments. The greater saphenous veins are also within normal limits. Doppler indicates normal spontaneous flow within these segments.
[2016-05-21 20:00] VITALS: BP 99/59
[2016-05-22] VITALS: BP 91/51
[2016-05-22] MEDS: Albuterol 90mcg Inhaler 8gm INH SCH ×3 (01:00→13:29)
[2016-05-22] MEDS: LORazepam 1mg tab ORAL PRN ×2 (03:24→09:57)
[2016-05-22] MEDS: Norco 10mg/325mg tab ORAL PRN ×2 (03:46→09:57)
[2016-05-22 04:00] VITALS: BP 102/66
[2016-05-22] MEDS: Heparin 5000 units/ml inj SUBQ SCH (09:00)
[2016-05-22] MEDS: Lisinopril 10mg tab ORAL SCH (09:00)
[2016-05-22] MEDS: BusPIRone 10mg Tab ORAL SCH ×2 (09:47→13:00)
--- NOTE | 2016-05-22 11:50 | Pulmonology Progress Note ---
Assessment/Plan Assessment/Plan ASSESSMENT syncope ( with exertion, not witnessed) systolic CHF severe cardiomyopathy Non compliance with medications severe pulmonary HTN moderate TR severe MR COPD Hx of HTN amphetamine abuse Homeless [facility] floor , off tele ECG with NSR , TWI in leads aVL and V6 and evidence of LVH - per cardio cardio follows troponin x 4 negative, ruled out for acute [place] syncope ( if real) could be 2 to drug abuse vs dehydration vs vasovagal vs arrhythmia no orthostatic changes no evidence of arrhythmia medical management of CHF with low dose of BB, diuretic and ELDON, closely watch BP last ECHO in 2015 with EF 10-15 %, RVSP of 58 c/w severe pulmonary HTN, severe MR and moderate TR reviewed orthostatic VS, no orthostatic changes O2, HHN prn CXR negative on RA sat stable, no respiratory complaints no evidence of COPD exacerbation, no evidence of seizure activity Venous Duplex BLE negative DVT prophylaxis patient declined to leave until feels better CM to arrange transfer to [facility] certified genetic counselor on abstinence from street drugs certified genetic counselor on compliance with medication regimen patient needs to set up primary care provider and cardio prior to dc patient wants to go to SNF for a short term rehab case discussed and evaluated by supervising physician Subjective Allergies: Coded Allergies: No Known Allergies (Unverified , 03/27/16) Subjective reports feeling better,still intermittent dizziness no orthostatic VS BP better denies chest pain, SOB, on RA, no signs of respiratory distress Objective Last 24 Hour Vital Signs Date Time Temp Pulse Resp B/P Pulse Ox O2 Delivery O2 Flow Rate FiO2 05/22/16 09:00 64 102/66 05/22/16 09:00 102/66 05/22/16 07:50 Room Air 05/22/16 07:50 64 16 97 Room Air 05/22/16 04:00 97.7 74 20 102/66 98 Room Air 05/22/16 01:34 Room Air 05/22/16 01:34 Room Air 05/22/16 00:00 97.2 76 20 91/51 91 Room Air 05/21/16 22:37 98.1 05/21/16 21:38 86 90/66 05/21/16 20:37 98.1 05/21/16 20:00 97.3 71 22 99/59 95 Room Air 05/21/16 19:53 Room Air 05/21/16 19:53 Room Air 05/21/16 19:39 90/66 05/21/16 18:42 82 86 89 05/21/16 16:13 98.1 89 14 102/60 88 Room Air 05/21/16 13:30 Room Air 05/21/16 13:30 Room Air 05/21/16 12:06 75 84 72 05/21/16 12:04 97.3 75 15 99/57 98 Room Air Intake and Output 05/21/16 05/22/16 18:59 06:59 Intake Total 2100 ml Output Total 600 ml Balance 2100 ml -600 ml Intake Oral 2100 ml Output Urine Total 600 ml # Voids 3 6 # Bowel Movements 3 Objective General Appearance: no acute distress HEENT: normocephalic, atraumatic, anicteric, mucous membranes moist Respiratory/Chest: lungs clear with moderate air entry , no respiratory distress, no accessory muscle use Cardiovascular: normal rate, regular rhythm, no JVD Abdomen: normal bowel sounds, soft, non tender, non distended Genitourinary: normal external genitalia Extremities: no edema, pedal pulses normal Neurologic/Psychiatric: no motor/sensory deficits, alert, oriented x 3, responsive, normal mood/affect Musculoskeletal: normal muscle bulk Current Medications Medications (Trade) Dose Ordered Sig/Prosper Route PRN Reason Start Time Stop Time Status Last Admin Dose Admin Acetaminophen (Tylenol) 650 mg Q4H PRN ORAL Fever 05/19/16 20:15 06/18/16 20:14 Acetaminophen/ Hydrocodone Bitart ([place] 10/325) 1 ea Q6H PRN ORAL For Pain 05/19/16 20:00 05/26/16 19:59 05/22/16 09:57 Albuterol Sulfate (Proventil MDI) 2 puff Q6H INH 05/20/16 01:00 06/19/16 00:59 Albuterol/ Ipratropium (DuoNeb 0.5-3(2.5)mg/3ml) 3 ml Q4H PRN HHN Shortness of Breath 05/19/16 21:00 05/24/16 20:59 Buspirone HCl (Buspar) 10 mg THREE TIMES A DAY ORAL 05/19/16 21:00 06/18/16 20:59 05/22/16 09:47 Carvedilol (Coreg) 3.125 mg EVERY 12 HOURS ORAL 05/22/16 09:00 06/18/16 08:59 Dextrose (Dextrose 50%) STAT PRN IV Hypoglycemia 05/19/16 20:00 06/18/16 19:59 Furosemide (Lasix) 40 mg EVERY 8 HOURS IV 05/19/16 22:00 06/18/16 21:59 05/22/16 06:38 Gabapentin (Neurontin) 100 mg THREE TIMES A DAY ORAL 05/19/16 21:00 06/18/16 20:59 05/22/16 09:46 Heparin Sodium (Porcine) (Heparin 5000 units/ml) 5,000 units EVERY 12 HOURS SUBQ 05/19/16 21:00 06/18/16 20:59 Lisinopril (Zestril) 10 mg BID ORAL 05/19/16 21:00 06/18/16 20:59 05/21/16 19:39 Lorazepam (Ativan) 1 mg Q4H PRN ORAL For Anxiety 05/19/16 19:30 05/26/16 19:29 05/22/16 09:57 Ondansetron HCl (Zofran) 4 mg Q6H PRN IVP Nausea & Vomiting 05/19/16 20:00 06/18/16 19:59 05/20/16 18:12 Polyethylene Glycol (Miralax) 17 gm DAILYPRN PRN ORAL Constipation 05/19/16 20:00 06/18/16 19:59 Temazepam (Restoril) 15 mg HSPRN PRN ORAL Insomnia 05/19/16 21:00 05/26/16 20:59 05/21/16 21:38 Asif EscobarRenetta mejia NP May 22, 2016 11:50
[2016-05-22 16:57] VITALS: BP 132/76
--- NOTE | 2016-05-23 13:23 | Discharge Summary ---
Discharge Summary Hospital Course Date of Admission May 17, 2016 at 00:40 Date of Discharge May 22, 2016 at 17:55 Admitting Diagnosis syncope, CHF. TENNILLE Cochran is a 41 year old male who was admitted on May 17, 2016 at 00:40 for Syncope,Congestive Heart Failure Hospital Course dc summary dictated #[id number] Discharge Medications Continued Medications: Albuterol Sulfate* (Albuterol Sulfate Mdi*) 8.5 Gm Hfa.aer.ad 2 PUFF INH Q6H, #1 INH 0 Refills Buspirone Hcl* (Buspar*) 10 Mg Tablet 10 MG ORAL THREE TIMES A DAY for 30 Days, TAB Carvedilol (Coreg) 3.125 Mg Tablet Unknown Dose ORAL EVERY 12 HOURS, TAB Furosemide* (Lasix*) 20 Mg Tablet Unknown Dose ORAL DAILY, TAB Gabapentin* (Neurontin*) 100 Mg Capsule 100 MG ORAL THREE TIMES A DAY, #15 CAP 0 Refills Hydrocodone Bit/Acetaminophen 10-325* ([place] 10-325*) 1 Each Tablet 1 TAB ORAL Q6H PRN for 14 Days, #10 TAB 0 Refills PRN PAIN Hydrocodone Bit/Acetaminophen 5-325* ([place] 5-325*) 1 Each Tablet 1 TAB ORAL Q6H PRN for For Pain, #10 TAB 0 Refills Lisinopril (Lisinopril*) 5 Mg Tablet Unknown Dose ORAL DAILY, TAB Discontinued Medications: Buspirone Hcl* (Buspar*) 10 Mg Tablet Unknown Dose ORAL THREE TIMES A DAY, #15 TAB 0 Refills Carvedilol (Coreg) 6.25 Mg Tablet 6.25 MG ORAL EVERY 12 HOURS, TAB Furosemide* (Lasix*) 40 Mg Tablet 40 MG ORAL TWICE A DAY, TAB 0 Refills Gabapentin* (Neurontin*) 100 Mg Capsule Unknown Dose ORAL THREE TIMES A DAY, #15 CAP 0 Refills Lisinopril (Lisinopril*) 5 Mg Tablet 10 MG ORAL BID, TAB Discharge Condition Upon Discharge: stable Discharge Disposition Patient was discharged to Home () Discharge Diagnoses: Asif (Sundeep)Renetta NP May 23, 2016 13:23
--- NOTE | 2016-05-24 11:27 | Discharge Summary 2 SIG ---
DATE OF ADMISSION: 05/17/2016 DATE OF DISCHARGE: 05/22/2016 The patient was admitted under Dr. Henson. REASON FOR ADMISSION: 41-year-old male with a history of severe cardiomyopathy, who was noncompliant with his medications for about one week, presented with a chief complaint of generalized weakness and syncope with exertion. He denied chest pain. Denies nausea and vomiting. He had mild swelling in lower extremities. No fever. No chills. No diaphoresis. No palpitation. Occasional shortness of breath with exertion. In the emergency department, initial workup revealed elevated proBNP. EKG showed normal sinus rhythm. No premature ventricular contractions. No ectopy. No ST changes. Chest x-ray revealed cardiomegaly without acute cardiopulmonary disease. No consolidation. No effusion. No pneumothorax. The patient was admitted for further management. ADMITTING DIAGNOSES: 1. Acute exacerbation of congestive heart failure. 2. Severe systolic congestive heart failure. 3. Chronic obstructive pulmonary disease. 4. Amphetamine abuse. 5. Homeless. HOSPITAL COURSE: The patient was admitted to telemetry. Cardiac evaluation was requested to titrate cardiac medications. Per Cardiology, the patient's EKG shows normal sinus rhythm and some voltage criteria for left ventricular hypertrophy. There was a T-wave inversion noted in lead aVL and V6, but there was no other EKG to compare with. He was afebrile. No leukocytosis. Hemoglobin was stable. Electrolytes were stable. CK was 246. Troponin was negative. ProBNP was 2300. The patient was noncompliant with examination of soil sort worker. The patient verbalized that he wants to be seen by soil sort worker from his health plan. Per Cardiology, the cause of syncope could be volume or medication or arrhythmia or vasovagal. Subsequently since there was no evidence of arrhythmia on telemetry, the patient was transferred to Med/Surg floor. Troponin x4 was negative. The patient was ruled out for acute myocardial infarction. Syncope could be secondary to drug abuse versus dehydration versus vasovagal versus arrhythmia. However, no orthostatic changes. Orthostatic vital signs were done daily. No evidence of arrhythmia. Thus syncope most likely secondary to hypotension versus drug abuse versus dehydration. The patient had a low blood pressure and lisinopril dose was decreased. Medical management of congestive heart failure with low dose of beta-gege, low dose of ELDON, and diuretic. Blood pressure was closely watched. The last echo was done in March 2016 revealed ejection fraction 10% to 15%, right ventricular systolic pressure 58, consistent with severe pulmonary hypertension, severe mitral regurgitation, and moderate tricuspid regurgitation. Supplemental oxygen and pulmonary toilet provided as needed. The patient's saturation was stable on room air. No need for the oxygen. Chest x-ray was negative for any acute cardiopulmonary disease. No evidence of chronic obstructive pulmonary disease exacerbation. No evidence of seizure activity. Venous duplex of bilateral lower extremity was negative. DVT prophylaxis provided. The patient initially declined to leave until he feels better. The patient homeless, has parents who live in [place], occasionally stays with them. The patient was counseled on abstinence from the street drugs and compliance with the medication regimen. carry in worker explained prior to discharge regarding how to fing a primary care provider per current insurance plan. The patient was discharged home and to follow up with the primary care provider, which he needs to be set up. He instructed to go to the emergency room, should he develop again shortness of breath, syncope or chest pain. DISCHARGE DIAGNOSES: : 1. Syncope, possibly due to dehydration versus drug abuse. 2. Systolic congestive heart failure. 3. Severe cardiomyopathy. 4. Noncompliance with medication. 5. Severe pulmonary hypertension. 6. Moderate tricuspid regurgitation. 7. Severe mitral regurgitation. 8. Chronic obstructive pulmonary disease, no evidence of exacerbation. 9. Hypotension. 10. Amphetamine abuse. 11. Homeless. DISCHARGE MEDICATIONS: See medication reconciliation list. DISCHARGE INSTRUCTIONS: The patient was discharged home. Follow up with the primary care provider. Meagan Henson M.D. I have been assigned to dictate discharge summary on this account and I was not involved in the patient's management. Renetta Gold (Vanchtein) N.PTacho DR: NURYS JOB#: [id number] CC: VIVIENNE
--- NOTE | 2016-06-14 15:45 | Cardiology Report ---
APPROVED REPORT EKG Measurement Heart [id number] NC 148P65 [id number] Normal sinus rhythm Right atrial enlargement Voltage criteria for left ventricular hypertrophy Nonspecific ST and T wave abnormality Prolonged QT Abnormal ECG
--- NOTE | 2016-06-15 13:30 | Cardiology Report ---
APPROVED REPORT EKG Measurement Heart [id number] MT [id number] Sinus rhythm with premature atrial complexes Right atrial enlargement Voltage criteria for left ventricular hypertrophy Nonspecific T wave abnormality Prolonged QT Abnormal ECG
== END 2016-05-22 17:55 | disposition short-term general hospital (02) | DRG 194 ==
LOC: EMR 23:20 → 2E 05-17 00:40 → EDBEDREQ 05-17 02:09 → 2E 05-17 13:21 → 4E 05-18 20:19 → 3E 05-22 15:30
DX: I50.23 Acute on chronic systolic (congestive) heart failure (principal); I27.2 Other secondary pulmonary hypertension; E86.0 Dehydration; I42.9 Cardiomyopathy, unspecified; J44.9 Chronic obstructive pulmonary disease, unspecified; F15.10 Other stimulant abuse, uncomplicated; Z59.0 Homelessness; Z91.14 Patient's other noncompliance with medication regimen; I10 Essential (primary) hypertension; I08.1 Rheumatic disorders of both mitral and tricuspid valves
CPT/HCPCS: 36415; 71010; 80048; 80053; 80069; 80300; 81003; 82550; 82553; 83880; 84484; 85025; 87081; 93005; 93970; 94640; J2405

== ENCOUNTER 2016-12-28 07:37 | Emergency (ER) | payer OTHER ==
[~2016-12-28] VITALS: Ht 180.3 cm; Wt 88.5 kg
[2016-12-28] MEDS ORDERED: Norco 5mg/325mg tab ORAL ONE (07:45)
[2016-12-28] MEDS ORDERED: DiphenhydrAMINE 50mg/ml Inj IVP ONE (07:45)
[2016-12-28] MEDS ORDERED: Metoclopramide 10mg/2ml Inj IVP ONE (07:45)
[2016-12-28 07:58] LABS: BASOPHILS % (AUTO) 1.7 % (0.0-2.0); EOSINOPHILS % (AUTO) 4.8 % (0.0-3.0); LYMPHOCYTES % (AUTO) 31.8 % (20.0-45.0); MEAN CORPUSCULAR HGB CONC 30.3 G/DL (32.0-36.0); MEAN CORPUSCULAR VOLUME 89 FL (80-99); MEAN PLATELET VOLUME 8.5 FL (6.5-10.1); MONOCYTES % (AUTO) 13.3 % (1.0-10.0); NEUTROPHILS % (AUTO) 48.4 % (45.0-75.0); PLATELET COUNT 183 K/UL (150-450); RED BLOOD COUNT 5.38 M/UL (4.70-6.10); RED CELL DISTRIBUTION WIDTH 15.9 % (11.6-14.8); WHITE BLOOD COUNT 5.4 K/UL (4.8-10.8)
[2016-12-28 08:11] LABS: ALANINE AMINOTRANSFERASE 29 U/L (3-41); ALBUMIN/GLOBULIN RATIO 1.2 (1.0-2.7); ANION GAP 10 (5-15); ASPARTATE AMINO TRANSFERASE 40 U/L (5-40); CALCIUM 8.4 mg/dL (8.6-10.2); CARBON DIOXIDE 25 mEQ/L (20-30); CHLORIDE 101 mEQ/L (98-107); GLOMERULAR FILTRATION RATE > 60 mL/min (>60); HEMOLYSIS 10; POTASSIUM 4.3 mEQ/L (3.4-4.9); SODIUM 136 mEQ/L (135-145); TOTAL PROTEIN 6.4 g/dL (6.6-8.7)
[2016-12-28 08:16] LABS: TROPONIN I < 0.30 ng/mL (<=0.30)
[2016-12-28 08:26] LABS: CKMB 4.5 ng/mL (< 6.7)
[2016-12-28] MEDS ORDERED: Morphine Sulfate 4mg/ml Inj IVP ONE (08:30)
--- NOTE | 2016-12-28 09:13 | Diagnostic Imaging Report ---
Indication: Headache Technique: Contiguous 5 mm thick transaxial imaging of the head obtained in a Siemens Sensation [address] scanner. Soft tissue and bone windows generated. Total Dose length Product (DLP): [address] Dose Index Volume (CTDIvol): 70.38, 0.15 mGy Comparison: none Findings: The size and configuration of the cortical sulci, basal cisterns, and ventricles are within normal limits for age. There is no mass effect, midline shift, or edema identified. There is no evidence of acute hemorrhage or abnormal intra-axial or extra-axial fluid collections. The bones and soft tissues are unremarkable. Impression: No mass effect, edema or acute bleed. The CT scanner at [facility] is accredited by the [employer] and the scans are performed using dose optimization techniques as appropriate to a performed exam including Automatic Exposure control.
--- NOTE | 2016-12-28 09:29 | Emergency Room Report ---
History of Present Illness General Chief Complaint: Chest Pain Source: Patient, Medical Record, EMS Present Illness HPI 41-year-old male presents ED her evaluation. Patient presents from [facility]. Per EMS patient complained of chest pain. Patient denies having chest pain. States that he was having a headache this morning. States it started yesterday but has not improved with pain medication. Pain is throbbing, 10 out of 10, above the right eye, radiating through the forehead. Denies any photophobia or blurry vision. Denies any neck stiffness. Denies any fevers or chills. No other aggravating relieving factors. Denies any other associated symptoms Allergies: Coded Allergies: No Known Allergies (Unverified , 03/27/16) Patient History Past Medical History: CHF, COPD, psych hx Past Surgical History: none Pertinent Family History: none Social History: Denies: smoking, alcohol use, drug use Immunizations: UTD Reviewed Nursing Documentation: PMH: Agreed, PSxH: Agreed Nursing Documentation-PMH Hx Cardiac Problems: Yes - CHF Hx Hypertension: Yes Hx COPD: Yes Hx Cancer: No Hx Gastrointestinal Problems: No History Of Psychiatric Problem: Yes - anxiety Hx Neurological Problems: Yes Review of Systems All Other Systems: negative except mentioned in HPI Physical Exam Vital Signs Date Time Temp Pulse Resp B/P (MAP) Pulse Ox O2 Delivery O2 Flow Rate FiO2 12/28/16 07:29 98.2 96 18 105/72 100 Room Air Sp02 EP Interpretation: reviewed, normal General Appearance: no apparent distress, alert, GCS 15, non-toxic Head: normocephalic, atraumatic Eyes: bilateral eye normal inspection, bilateral eye PERRL ENT: hearing grossly normal, normal pharynx, no angioedema, normal voice Neck: full range of motion, supple, no meningismus, supple/symm/no masses Respiratory: chest non-tender, lungs clear, normal breath sounds, speaking full sentences Cardiovascular #1: regular rate, rhythm, no edema Cardiovascular #2: 2+ carotid (R), 2+ carotid (L), 2+ radial (R), 2+ radial (L) , 2+ dorsalis pedis (R), 2+ dorsalis pedis (L) Gastrointestinal: normal bowel sounds, non tender, soft, non-distended, no guarding, no rebound Rectal: deferred Genitourinary: normal inspection, no CVA tenderness Musculoskeletal: back normal, gait/station normal, normal range of motion, non- tender Neurologic: alert, oriented x3, responsive, motor strength/tone normal, sensory intact, speech normal Psychiatric: judgement/insight normal, memory normal, mood/affect normal, no suicidal/homicidal ideation Reflexes: 3+ bicep (R), 3+ bicep (L), 3+ tricep (R), 3+ tricep (L), 3+ knee (R) , 3+ knee (L) Skin: normal color, no rash, warm/dry, well hydrated Lymphatic: no adenopathy Medical Decision Making Diagnostic Impression: Primary Impression: Headache above the eye region Additional Impression: Systolic CHF Qualified Codes: I50.22 - Chronic systolic (congestive) heart failure ER Course Hospital Course 41-year-old male presents to ED complaining of headache. h/o CHF Differential diagnoses include: tension headache, migraine, dehydration, intracranial bleed Clinical course Patient placed on stretcher. After initial history and physical I ordered labs , IV fluids, Reglan, Toradol and Benadryl. CT head Labs reviewed- electrolytes okay, no leukocytosis, hemoglobin/hematocrit stable. trop negative. BNP elevated but stable EKG - NSR, no acute ischemic changes interpreted by me CXR - cardiomegaly. CT Head unremarkable Upon reassessment patient states pain has improved. Patient feels better wishes to go home. Given the lack of fever, nuchal rigidity or neurological findings my suspicion for intracranial pathology is low patient be safely discharged to home. i. I feel this is a highly complex case requiring extensive working including EKG/Rhythm strip, Xray/CT/US, Blood/urine lab work, repeat exams while in ED, and administration of strong opiates/narcotics for pain control, admission to hospital or close patient follow up. Diagnosis - headache, CHF stable and discharged to home with Rx Fioricet. f/up with PMD. return to ED if symptoms recur/worsen. Labs Test 12/28/16 07:48 White Blood Count 5.4 K/UL (4.8-10.8) Red Blood Count 5.38 M/UL (4.70-6.10) Hemoglobin 14.5 G/DL (14.2-18.0) Hematocrit 47.9 % (42.0-52.0) Mean Corpuscular Volume 89 FL (80-99) Mean Corpuscular Hemoglobin 27.0 PG (27.0-31.0) Mean Corpuscular Hemoglobin Concent 30.3 G/DL (32.0-36.0) Red Cell Distribution Width 15.9 % (11.6-14.8) Platelet Count 183 K/UL (150-450) Mean Platelet Volume 8.5 FL (6.5-10.1) Neutrophils (%) (Auto) 48.4 % (45.0-75.0) Lymphocytes (%) (Auto) 31.8 % (20.0-45.0) Monocytes (%) (Auto) 13.3 % (1.0-10.0) Eosinophils (%) (Auto) 4.8 % (0.0-3.0) Basophils (%) (Auto) 1.7 % (0.0-2.0) Sodium Level 136 mEQ/L (135-145) Potassium Level 4.3 mEQ/L (3.4-4.9) Chloride Level 101 mEQ/L (98-107) Carbon Dioxide Level 25 mEQ/L (20-30) Anion Gap 10 (5-15) Blood Urea Nitrogen 23 mg/dL (7-23) Creatinine 1.0 mg/dL (0.7-1.2) Estimat Glomerular Filtration Rate > 60 mL/min (>60) Glucose Level 111 mg/dL (74-106) Calcium Level 8.4 mg/dL (8.6-10.2) Total Bilirubin 0.6 mg/dL (0.0-1.2) Aspartate Amino Transf (AST/SGOT) 40 U/L (5-40) Alanine Aminotransferase (ALT/SGPT) 29 U/L (3-41) Alkaline Phosphatase 81 U/L (40-129) Total Creatine Kinase 237 U/L (38-174) Creatine Kinase MB 4.5 ng/mL (< 6.7) Creatine Kinase MB Relative Index 1.8 Troponin I < 0.30 ng/mL (<=0.30) Pro-B-Type Natriuretic Peptide 3555 pg/mL (0-125) Total Protein 6.4 g/dL (6.6-8.7) Albumin 3.5 g/dL (3.5-5.2) Globulin 2.9 g/dL Albumin/Globulin Ratio 1.2 (1.0-2.7) EKG Diagnostic Results Rate: normal Rhythm: NSR ST Segments: no acute changes ASA given to the pt in ED: No Rhythm Strip Diag. Results EP Interpretation: yes Rhythm: NSR, no PVC's, no ectopy Chest X-Ray Diagnostic Results Chest X-Ray Diagnostic Results : Chest X-Ray Ordered: Yes # of Views/Limited/Complete: 1 View Indication: Chest Pain EP Interpretation: Yes Interpretation: no consolidation, no effusion, no pneumothorax, other - cardiomegaly Impression: No acute disease Interpreting ER Provider: Electronically signed by Rl Mckeon MD CT/MRI/US Diagnostic Results CT/MRI/US Diagnostic Results : Imaging Test Ordered: CT head Impression no acute process Last Vital Signs Date Time Temp Pulse Resp B/P (MAP) Pulse Ox O2 Delivery O2 Flow Rate FiO2 12/28/16 08:23 96 18 Room Air 12/28/16 07:29 98.2 105/72 100 Status: improved Disposition: HOME, SELF-CARE Condition: Stable Scripts Acetamin/Butalbital/Caffeine* (FIORICET*) 1 Ea Tab 1 TAB ORAL Q6H, #15 TAB 0 Refills Prov: RL MCKEON M.D. 12/28/16 Referrals: [facility],REFERRING (PCP) RL MCKEON M.D. Dec 28, 2016 09:29
[2016-12-28] MEDS ORDERED: Ketorolac 30mg Inj IV ONE (09:30)
[2016-12-28 09:32] VITALS: BP 115/76
[2016-12-28] MEDS ORDERED: FIORICET1 EA ORAL (10:00)
--- NOTE | 2016-12-28 10:24 | Diagnostic Imaging Report ---
Indication: Dyspnea Comparison: 05/18/16 A single view chest radiograph was obtained. Findings: Heart is enlarged. There is no definite CHF. Lungs are essentially clear. Bones are unremarkable. Impression: Cardiomegaly
[2016-12-28 10:46] VITALS: BP 117/74
== END 2016-12-28 10:50 | disposition home or self-care (01) ==
LOC: EDBD 07:37 → EMR 07:59
DX: R51 Headache (principal); I50.22 Chronic systolic (congestive) heart failure; J44.9 Chronic obstructive pulmonary disease, unspecified; I10 Essential (primary) hypertension; F41.9 Anxiety disorder, unspecified
CPT/HCPCS: 70450; 71010; 80053; 82550; 82553; 83880; 84484; 85025; 93005; 96374; 96375; 99284; J1200; J1885; J2270; J2765; J7040